=== PATIENT | male | born 2000 | race Caucasian/White ===

== ENCOUNTER 2025-03-23 15:10 | Outpatient (CLI) | payer SELFPAY ==
--- NOTE | 2025-03-23 15:19 | MR_ITS ---
WS: [id number] MRI HEAD WITH CONTRAST TECHNIQUE: Sagittal T1, T2 axial, T2 axial FLAIR, axial susceptibility weighted imaging, axial diffusion weighted images, and coronal T2 images were obtained. Pre and post-T1 axial and post T1 coronal images. ADC and FSPGR images. CLINICAL INFORMATION: CHRONIC DAILY HEADACHE COMPARISON: None. FINDINGS: No evidence of restricted diffusion to suggest acute ischemia. Normal cheatham-white differentiation. Normal posterior fossa. Normal vascular flow voids at the skull base. No extra-axial fluid collections. No evidence of mass or mass effect. Mild mucosal thickening in the paranasal sinuses. Mastoid air cells are well aerated. Normal posterior nasopharynx. No hemosiderin on the susceptibly weighted images. Normal optic chiasm and pituitary infundibulum. Temporal lobes and hippocampal formations are normal in appearance. 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 No hydrocephalus. This is likely incidental. No abnormal gadolinium enhancement. Normal dural venous sinuses. Benign incidental venous angioma LEFT frontal parietal junction MR/MR head wo/w con [id number] IMPRESSION: 1. No evidence of restricted diffusion to suggest acute ischemia. 2. No suspicious intracranial signal abnormalities. 3. No hemosiderin on the susceptibility weighted images. 4. 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 No hydrocephalus. Normal fourth ventricle.
--- NOTE | 2025-03-23 15:26 | MR_ITS ---
WS: [id number] MRI CERVICAL SPINE NONCONTRAST TECHNIQUE: Sagittal T1, T2 and STIR imaging. Axial T2, gradient, and fiesta imaging. CLINICAL INFORMATION: daily headaches COMPARISON: None. FINDINGS: Normal cervical alignment. No high-grade central canal stenosis. Chiari I malformation. Normal fourth ventricle. Cord signal is normal. No syrinx in the cervical cord. C2-C3: Normal. C3-C4: Normal. C4-C5: Mild endplate ridging. Mild facet arthropathy. Mild LEFT bony foraminal narrowing C5-C6: Mild facet arthropathy. Mild LEFT greater than RIGHT bony foraminal narrowing. C6-C7: Minimal disc bulging. Endplate ridging. Mild LEFT foraminal narrowing. Spinal canal is patent. C7-T1: Normal. MR/MR cervical spin wo con* [id number] IMPRESSION: 1. Normal cervical alignment. No high-grade central canal stenosis. 2. Cord signal is normal. 3. Mild facet arthropathy C4-C5 and C5-C6 with mild LEFT C4-5 and LEFT C5-6 fo raminal 4. Minimal disc bulging C6-7 with endplate ridging and mild LEFT foraminal yevgeniy rowing 5. Chiari I malformation with cerebellar tonsils approximately 4 mm below fora men magnum.
[2025-03-23] MEDS: gadobenate dimeglumine 20 mL vial 15 ML IV (16:46)
== END 2025-03-23 15:11 | disposition home or self-care (01) ==
LOC: RAD 15:11
PROVIDERS: Family Provider Emergency Medicine; PCP Family Medicine; Visit Provider Electrodiagnostic Medicine
DX: Q28.3 Other malformations of cerebral vessels (principal); J34.89 Other specified disorders of nose and nasal sinuses; M47.812 Spondylosis without myelopathy or radiculopathy, cervical region; M48.02 Spinal stenosis, cervical region; M50.33 Other cervical disc degeneration, cervicothoracic region
CPT/HCPCS: 70553; 72141